=== PATIENT | female | born 1955 ===

== ENCOUNTER 2023-01-24 13:10 | Outpatient (AMB) | payer MEDICARE, MEDICAID, SELFPAY ==
--- NOTE | 2023-01-24 13:11 | MHC.OFFVIS ---
Intake Vital Signs 01/24/23 13:14 Height 5 ft 6 in Weight 219 lb BMI 35.3 BP 112/64 Blood Pressure Location Lt brachial Position Sitting Pulse 79 Pulse Source Pulse Oximeter Pulse Oximetry (%) 94 Oxygen Delivery Method Room Air Intake Visit Reasons: Emphysema Cashier Parking Lot Required: No Application Counselor: Application Counselor offered & declined Accompanied by: Spouse Allergies bupropion [From Wellbutrin] Allergy (Unknown, Verified 01/24/23 13:21) Unknown tetanus toxoid Allergy (Unknown, Uncoded 01/24/23 13:21) unknown Medication List - Last Reconciled 01/24/23 by Kaela Rowley LPN amlodipine 5 mg PO DAILY apixaban 5 mg PO BID dexamethasone 4 mg PO DAILY furosemide 20 mg PO DAILY gabapentin 100 mg PO TID hydromorphone (Dilaudid) 2 mg PO Q4-6H PRN ondansetron HCl 8 mg PO Q12H PRN HPI Emphysema HPI Details Maria Victoria is a pleasant 67 year old female, never smoker, with underlying emphysema, primary breast cancer with bone metastasis under the care of [facility] Oncology managed on docetaxel q 3 weeks, anemia secondary to chemotherapy, h/o leiomyosarcoma s/p resection 1992, h/o DVT on eliquis and unilateral vocal cord paralysis. She was diagnosed with right sided breast carcinoma in 2002, underwent radiation/chemo then maintained on tamoixfen x 5 years and femara x 5 years, completed by 2013. Six months after discontinuating treatment, she developed left sided chest pain and she underwent a rib biopsy which was nondiagnostic, ultimately having a mediastinoscopy after mediastinal lymph nodes were FGD avid on PET. She was ultimately diagnosed with breast cancer and bone mets to pelvis, femur and vertebrae. She has tolerated docetaxel q 3 weeks other than fatigue for the past two years. She presents for evaluation today, referred by oncology, for worsening dyspnea on minimal exertion and intermittent productive cough with whitish sputum, wheezing and chest tightness. She notes this has been more noticeable since the beginning of December. She was placed on prednisone with moderate improvement in symptoms and today is the last day of her taper. She reports recent chest CT, reports not available. Will attempt to obtain. She denies any prior history or personal history of respiratory conditions. Of note, she does report pneumonia at least twice per year for the last few years. She denies any occupational exposures. She denies any history of environmental allergies. She was recently evaluated by cardiology, Dr. Mckeon at [facility], who doubled her lasix yesterday and was sent for an echo. Results not available today. She does report worsening BLE. [facility] Social History (Updated 01/24/23 @ 13:26 by Kaela Rowley LPN) Patient Tobacco Use Status: Never used Tobacco Review of Systems Const Denies chills, Denies excessive sweating, Denies fever(s), Denies headache(s) and Denies night sweats Eyes Denies dry eyes, Denies irritation and Denies itchy eyes ENT Reports Normal hearing present, Denies headache(s), Denies nasal congestion, Denies nasal discharge, Denies post nasal drip and Denies sore throat Card Denies chest pain, Denies chest pain at rest, Denies chest pain with activity, Denies claudication, Denies orthopnea and Denies paroxysmal nocturnal dyspnea Resp Denies excessive phlegm production, Denies pain on inspiration, Denies pain with cough and Denies stridor Neuro Reports Normal hearing present and Denies headache(s) Endo Denies excessive sweating Aller/Immun Denies itchy eyes and Denies seasonal rhinorrhea Physical Exam Vital Signs: Last Vital Signs Pulse 79 01/24/23 13:14 BP 112/64 01/24/23 13:14 Pulse Ox 94 01/24/23 13:14 Oxygen Delivery Method Room Air 01/24/23 13:14 BMI result Body Mass Index 35.3 Const General: cooperative, healthy appearing, comfortable, no acute distress, well developed and alert Nutritional Appearance: obese Orientation/consciousness: patient oriented x3 Limitations: no limitations HEENT Head: Yes normal to inspection, Yes normocephalic and Yes atraumatic Ears: hearing grossly normal bilaterally and external ears normal Eyes General: appearance normal, both eyes and all related structures Eyelids: Yes eyelids normal Sclerae: sclerae normal EOM: EOMs intact bilaterally Neck Neck: Yes normal visual inspection Chest Chest palpation & inspection: normal inspection of the chest Resp Other: coarse rhonchi throughout, bibasilar inspiratory crackles Effort & Inspection: normal respiratory effort, able to speak in complete sentences, no audible wheezes, no stridor, not tachypneic, no tripod positioning and no use of accessory muscles Auscultation: crackles bilateral at the base, rhonchi and diminished lung sounds Cardio Jugular venous distension: no JVD Rate: regular rate Rhythm: regular rhythm Skin Other: warm, dry General skin exam: no rashes or lesions noted Neuro General: patient oriented x3 Cranial nerves: Yes Normal hearing present Cognition (Neuro): normal cognition Gait exam (Neuro): Normal gait present Extrem General: Yes normal to inspection and Yes capillary refill normal Psych Appearance: grossly normal and well kempt Speech and movement: Normal speech and movement present and Clear speech present Affect: normal affect Attitude: cooperative Thought process: Normal thought process present Thought content: Normal thought content present Insight: Good insight present (Psych) Judgement: Good judgement present (Psych) Assessment & Plan Assessment & Plan (1) Dyspnea on exertion: Code(s): R06.09 - Other forms of dyspnea (2) Emphysema of lung: Code(s): J43.9 - Emphysema, unspecified (3) Breast cancer metastasized to bone: Code(s): C50.919 - Malignant neoplasm of unspecified site of unspecified female breast; C79.51 - Secondary malignant neoplasm of bone Plan Maria Victoria's symptoms are likely multifactorial with contribution from pulmonary, cardiac and metastatic breast cancer etiologies. She did report that there was no lung involvement on prior imaging, but will obtain report to review.Will send for PFT to assess for an obstructive defect. Will treat bronchitic symptoms with doxycycline and prednisone. She is aware if symptoms do not improve to call and if worsen seek emergent care. Symptoms improved after nebulizer in office. She was given nebulizer for home use today. 6MWT performed and there is no need for supplemental oxygen, however became tachycardiac quickly. She recently doubled her lasix and has an upcoming follow up to review echo results with cardiology. On exam, she did have 2-3+ pitting edema and bilateral crackles noted on exam, likely related to underlying cardiac etiologies. She reported recent imaging however, if not recent, will send for CXR given findings on exam. Will follow up in 4 weeks to review response to nebulizer and antibiotics/prednisone. Will consider trialing ICS/LABA. All questions were answered and patient is in agreement of plan. Orders: Orders PFT pulmonary function test Today R06.09 - Other forms of dyspnea Medications: New prednisone see taper instructions; 40 mg Daily for three days, 30 mg daily for three days, 20 mg daily for three days, 10 mg daily for three days 10 mg PO DIRECTED 30 tabs 0RF doxycycline hyclate 100 mg PO BID 20 caps 0RF ipratropium-albuterol 0.5 mg-3 mg(2.5 mg base)/3 mL 3 mL inhalation Q6H PRN 180 mL 4RF wheezing Coding Level of Care Code New Pt Level 4 (11541) Diagnoses Dyspnea on exertion R06.09 Emphysema of lung J43.9 Breast cancer metastasized to bone C50.919; C79.51
[2023-01-24 13:14] VITALS: BP 112/64; PULSE 79; O2SAT 94; BMI 35.3
[2023-01-30 16:12] VITALS: PULSE 96; O2SAT 98
== END 2023-01-24 15:00 | disposition home or self-care (01) ==
PROVIDERS: Visit Provider Nurse Practitioner Family
DX: J43.9 Emphysema, unspecified (principal); R06.09 Other forms of dyspnea
CPT/HCPCS: 94618; 99204

== ENCOUNTER → 2023-01-24 13:10 | Outpatient (BNVA) | payer MEDICARE, MEDICAID, SELFPAY | PROVIDERS: Visit Provider Nurse Practitioner Family | DX: J43.9 Emphysema, unspecified (principal); R06.09 Other forms of dyspnea; C50.919 Malignant neoplasm of unspecified site of unspecified female breast; C79.51 Secondary malignant neoplasm of bone | CPT/HCPCS: 94618; 94640; 99202 ==

== ENCOUNTER 2023-03-07 13:19 | Outpatient (AMB) | payer MEDICARE, MEDICAID, SELFPAY ==
--- NOTE | 2023-03-07 13:52 | MHC.OFFVIS ---
Intake Vital Signs 03/07/23 13:54 Height 5 ft 6 in Weight 237 lb BMI 38.2 BP 126/70 Blood Pressure Location Lt brachial Position Sitting Pulse 84 Pulse Source Pulse Oximeter Pulse Oximetry (%) 95 Oxygen Delivery Method Room Air Intake Visit Reasons: Emphysema: 6 week f/u Reporting Analyst Required: No Manager Trade Marketing: Manager Trade Marketing offered & declined Accompanied by: Spouse Allergies bupropion [From Wellbutrin] Allergy (Unknown, Verified 03/07/23 14:00) Unknown tetanus toxoid Allergy (Unknown, Uncoded 03/07/23 14:00) unknown Medication List - Last Reconciled 03/07/23 by Kaela Rowley LPN amlodipine 5 mg PO DAILY apixaban 5 mg PO BID dexamethasone 4 mg PO DAILY furosemide 20 mg PO DAILY gabapentin 100 mg PO TID hydromorphone (Dilaudid) 2 mg PO Q4-6H PRN ipratropium-albuterol 0.5 mg-3 mg(2.5 mg base)/3 mL 3 mL inhalation Q6H PRN ondansetron HCl 8 mg PO Q12H PRN HPI Emphysema: 6 week f/u HPI Details Maria Victoria is a pleasant 67 year old female, never smoker, with underlying emphysema, primary breast cancer with bone metastasis under the care of [facility] On[facility] managed on docetaxel q 3 weeks, anemia secondary to chemotherapy, h/o leiomyosarcoma s/p resection 1992, h/o DVT on eliquis and unilateral vocal cord paralysis. At the last visit, she presented with bronchitic symptoms as well as moderate wheezing and dyspnea. She was prescribed doxycycline and prednisone with complete resolution of cough and wheezing. Her main complaint is continued dyspnea, however patient has not been taking lasix BID (prescribed by Cardiology) every day which has resulted in almost 20lb weight gain since the last visit. Of note, patient is scheduled for a PFT in two weeks but she has been quite fatigued from chemotherapy and advised her to cancel if she is not feeling well. [facility] Social History (Updated 03/07/23 @ 14:03 by Kaela Rowley LPN) Patient Tobacco Use Status: Never used Tobacco Review of Systems Const Denies chills, Denies excessive sweating, Denies fever(s), Denies headache(s) and Denies night sweats Eyes Denies dry eyes, Denies irritation and Denies itchy eyes ENT Reports Normal hearing present, Denies headache(s), Denies nasal congestion, Denies nasal discharge, Denies post nasal drip and Denies sore throat Card Denies chest pain, Denies chest pain at rest, Denies chest pain with activity, Denies claudication, Reports dyspnea on exertion, Denies orthopnea and Denies paroxysmal nocturnal dyspnea Resp Denies chest congestion, Denies cough, Denies hemoptysis, Denies excessive phlegm production, Denies pain on inspiration, Denies pain with cough, Reports dyspnea on exertion, Denies stridor and Denies wheezing Neuro Reports Normal hearing present and Denies headache(s) Endo Denies excessive sweating Aller/Immun Denies itchy eyes, Denies seasonal rhinorrhea and Denies wheezing Physical Exam Vital Signs: Last Vital Signs Pulse 84 03/07/23 13:54 BP 126/70 03/07/23 13:54 Pulse Ox 95 03/07/23 13:54 Oxygen Delivery Method Room Air 03/07/23 13:54 BMI result Body Mass Index 38.2 Const General: cooperative, comfortable, no acute distress, well developed, alert and tired appearing Nutritional Appearance: obese Orientation/consciousness: patient oriented x3 Limitations: no limitations HEENT Head: Yes normal to inspection, Yes normocephalic and Yes atraumatic Ears: hearing grossly normal bilaterally and external ears normal Eyes General: appearance normal, both eyes and all related structures Eyelids: Yes eyelids normal Sclerae: sclerae normal EOM: EOMs intact bilaterally Neck Neck: Yes normal visual inspection Chest Chest palpation & inspection: normal inspection of the chest Resp Effort & Inspection: normal respiratory effort, able to speak in complete sentences, no audible wheezes, no cough, no stridor, not tachypneic, no tripod positioning and no use of accessory muscles Auscultation: clear to auscultation bilaterally Cardio Jugular venous distension: no JVD Rate: regular rate Rhythm: regular rhythm Skin Other: warm, dry General skin exam: no rashes or lesions noted Neuro General: patient oriented x3 Cranial nerves: Yes Normal hearing present Cognition (Neuro): normal cognition Extrem Other: 2+ pitting edema BLE General: Yes normal to inspection and Yes capillary refill normal Psych Appearance: grossly normal and well kempt Speech and movement: Normal speech and movement present and Clear speech present Affect: normal affect Attitude: cooperative Thought process: Normal thought process present Thought content: Normal thought content present Insight: Good insight present (Psych) Judgement: Good judgement present (Psych) Assessment & Plan Assessment & Plan (1) Dyspnea on exertion: Code(s): R06.09 - Other forms of dyspnea (2) Emphysema of lung: Code(s): J43.9 - Emphysema, unspecified (3) Breast cancer metastasized to bone: Code(s): C50.919 - Malignant neoplasm of unspecified site of unspecified female breast; C79.51 - Secondary malignant neoplasm of bone Plan At the last visit, Maria Victoria was treated with doxycycline and prednisone as well as duoneb with complete resolution of bronchitic symptoms. She continues to report dyspnea however it is likely there is a significant cardiac contribution. Recommended taking lasix as prescribed and discussed importance of daily weights as well as low sodium diet. Advised to reach out to prescribing provider if she notes a significant weight gain. After discussion, patient would like to hold off on trialing an inhaler at this time. All questions were answered and patient is in agreement of plan. Will follow up in 6 months or sooner if needed. Coding Level of Care Code Est Pt Level 3 (63196) Diagnoses Dyspnea on exertion R06.09 Emphysema of lung J43.9 Breast cancer metastasized to bone C50.919; C79.51
[2023-03-07 13:54] VITALS: BP 126/70; PULSE 84; O2SAT 95; BMI 38.2
== END 2023-03-07 14:25 | disposition home or self-care (01) ==
PROVIDERS: Visit Provider Nurse Practitioner Family
DX: R06.09 Other forms of dyspnea (principal); J43.9 Emphysema, unspecified; C50.919 Malignant neoplasm of unspecified site of unspecified female breast; C79.51 Secondary malignant neoplasm of bone
CPT/HCPCS: 99213

== ENCOUNTER → 2023-03-07 13:19 | Outpatient (BNVA) | payer MEDICARE, MEDICAID, SELFPAY | PROVIDERS: Visit Provider Nurse Practitioner Family | DX: J43.9 Emphysema, unspecified (principal); R06.09 Other forms of dyspnea; C50.919 Malignant neoplasm of unspecified site of unspecified female breast; C79.51 Secondary malignant neoplasm of bone | CPT/HCPCS: 99212 ==